=== PATIENT | female | born 1990 | race Caucasian/White ===

== ENCOUNTER 2022-02-20 11:26 | Emergency (ER) | payer OTHER ==
[~2022-02-20] VITALS: Ht 162.6 cm; Wt 56.7 kg
[2022-02-20 12:06] LABS: BASOPHILS % (AUTO) 0.2 % (0.0-5.0); EOSINOPHILS % (AUTO) 0.6 % (0.0-8.0); HEMATOCRIT 41.7 % (36-48); LYMPHOCYTES % (AUTO) 18.4 % (21.0-51.0); MEAN CORPUSCULAR HEMOGLOBIN 30.6 pg (27.0-33.0); MEAN CORPUSCULAR HGB CONC 33.3 g/dL (32.0-36.0); MEAN CORPUSCULAR VOLUME 91.9 fL (79-99); MONOCYTES % (AUTO) 10.1 % (3.0-13.0); NEUTROPHILS % (AUTO) 70.1 % (40.0-77.0); PLATELET COUNT (AUTO) 179 K/uL (130-400); RED BLOOD CELL COUNT(AUTO) 4.54 MIL/uL (4.00-5.50); RED CELL DISTRIBUTION WIDTH 13.6 % (11.0-15.5); WHITE BLOOD COUNT (AUTO) 5.1 K/uL (4.8-10.8)
[2022-02-20 12:06] LABS: APPEARANCE,URINE CLEAR (CLEAR); BILIRUBIN,URINE NEGATIVE (NEGATIVE); COLOR,URINE YELLOW (YELLOW); GLUCOSE, URINE (UA) NEGATIVE (NEGATIVE); KETONES,URINE NEGATIVE (NEGATIVE); LEUKOCYTE ESTERASE ,URINE LARGE (NEGATIVE); NITRATE,URINE NEGATIVE (NEGATIVE); OCCULT BLOOD,URINE TRACE-LYSED (NEGATIVE); PH,URINE 6.5 (5.0-8.0); PROTEIN,URINE NEGATIVE (NEGATIVE); UROBILINOGEN,URINE 0.2 mg/dL (0.2-1.0)
[2022-02-20 12:14] LABS: HCG,QUAL RESULT NEGATIVE (NEGATIVE)
[2022-02-20 12:15] LABS: BACTERIA,URINE Rare /HPF (None Seen); RBC,URINE 0-1 /HPF (0-1); SQUAMOUS EPITHELIAL CELL,UR Rare /HPF (0-2); TRICHOMONAS,URINE Few /LPF (None Seen)
[2022-02-20 12:18] LABS: CREATININE 0.7 mg/dL (0.5-1.5); POTASSIUM 4.3 mmol/L (3.5-5.1)
[2022-02-20 12:23] LABS: BILIRUBIN,TOTAL 0.3 mg/dL (0.2-1.0); TOTAL PROTEIN, SERUM 8.3 g/dL (6.0-8.3)
[2022-02-20] MEDS: 0.9%NACL 1000ML 1,000 ML IV ONE (12:38)
[2022-02-20] MEDS: LIDOCAINE HCL 1% MDV 50ML VIAL ONE (12:38)
[2022-02-20] MEDS: KETOROLAC 15MG/ML VIAL (15MG/ML) IV ONE (12:38)
[2022-02-20] MEDS: CEFTRIAXONE 1G VIAL IVP ONE (12:38)
[2022-02-20] MEDS: AZITHROMYCIN 250 MG TABLET PO ONE (13:55)
[2022-02-20] MEDS: METRONIDAZOLE 500 MG TABLET PO SCH (13:55)
[2022-02-20] MEDS: ACETAMINOPHEN 500 MG TABLET PO ONE (14:03)
[2022-02-20] MEDS ORDERED: METR-172 PO (14:09)
[2022-02-20] MEDS ORDERED: NAPR500T6 PO (14:09)
[2022-02-20] MEDS ORDERED: DOXY-336 PO (14:09)
[2022-02-20 14:30] VITALS: BP 139/71
[2022-02-20 16:12] LABS: RAPID PLASMA REAGIN REACTIVE (NONREACTIVE)
[2022-02-20 16:13] LABS: RAPID PLASMA REAGIN TITER REACTIVE 1:16 (NONREACTIVE)
== END 2022-02-20 14:58 | disposition home or self-care (01) ==
LOC: EDH 11:26
DX: N76.0 Acute vaginitis (principal); A59.01 Trichomonal vulvovaginitis; A57 Chancroid; F41.9 Anxiety disorder, unspecified; F32.A Depression, unspecified; Z79.899 Other long term (current) drug therapy
CPT/HCPCS: 36415; 76856; 80053; 81001; 81025; 85025; 86592; 86780; 87088; 87210; 87486; 87529; 87797; 96374; 99284; J0696; J1885; J3490